=== PATIENT | male | born 1960 | race Caucasian/White ===

== ENCOUNTER 2018-05-13 06:00 | Day surgery (SDC) | payer BC ==
[~2018-05-13] VITALS: Ht 182.9 cm; Wt 122.2 kg
[2018-05-13] MEDS ORDERED: PROPOFOL 200 MG INJ ONE (07:00)
--- NOTE | 2018-05-13 07:21 | PREAC ---
Date/Time of Note Date/Time of Note DATE: 05/13/18 TIME: 07: Anesthesia Eval and Record Evaluation Time Pre-Procedure Interview DATE: 05/13/18 TIME: 07:19 Age 57 Sex male NPO: 8 hrs Preoperative diagnosis HX OF COLON POLYPS Planned procedure COLONOSCOPY Past Medical History Past Medical History: Includes Cardio: HTN, CAD Pulm: Other (LEFT DIAPHRAM PARTIAL PARALYSIS) Neuro: Other (THYMECTOMY) Surgery & Anesthesia Issues No known issue Meds Anticoagulation: No Beta Caroline within 24 hr: Yes Meds reviewed: Yes Allergies Coded Allergies: No Known Allergy (Unverified , 05/13/18) Allergies Reviewed: Yes Labs/Studies Labs Reviewed: Reviewed by anesthesiologist test: N/A Studies: ECG, CXR Pre-procedure Exam Airway: Adequate mouth opening, Adequate thyromental dist Mallampati: Mallampati II Teeth: Normal Lung: Normal Heart: Normal ASA Physical Status ASA physical status: 3 Emergency: None Planned Anesthetic General/MAC: MAC Planned Pain Management Parenteral pain med Pre-operative Attestations Prior to commencing anesthesia and surgery, the patient was re-evaluated, there was verification of: *The patient's identity *The results of appropriate recent lab work and preoperative vital signs *The above evaluation not changing prior to induction *Anesthetic plan, risk benefits, alternative and complications discussed with patient/family; questions answered; patient/family understands, accepts and wishes to proceed. NAYELI HERZOG May 13, 2018 07:21
[2018-05-13] MEDS ORDERED: EFFIENT (07:28)
[2018-05-13] MEDS ORDERED: IMMURAN (07:28)
[2018-05-13] MEDS ORDERED: ELIQUIS (07:28)
[2018-05-13] MEDS ORDERED: MESTINON (07:28)
[2018-05-13] MEDS ORDERED: LISINOPRIL (07:29)
[2018-05-13] MEDS ORDERED: ATORVASTATIN (07:29)
[2018-05-13] MEDS ORDERED: PREDNISONE (07:29)
[2018-05-13] MEDS ORDERED: DIGOXIN (07:29)
[2018-05-13] MEDS ORDERED: hydrALAzine 20 MG INJ IV PRN (07:30)
[2018-05-13] MEDS ORDERED: ALBUTEROL 0.083% (NEB) 2.5 MG/3 ML AMP HHN PRN (07:30)
[2018-05-13] MEDS ORDERED: EPHEDrine SULFATE 50 MG/5 ML SYG IV PRN (07:30)
[2018-05-13] MEDS ORDERED: LABETALOL HCL 20MG INJ IV PRN (07:30)
[2018-05-13] MEDS ORDERED: FENTAnyl 50 MCG/ML VIAL IV PRN ×2 (07:30)
[2018-05-13] MEDS ORDERED: ONDANSETRON 4 MG INJ IV PRN (07:30)
[2018-05-13] MEDS ORDERED: PROPOFOL 60 ML ONE (07:36)
[2018-05-13] MEDS ORDERED: LIDOCAINE 2% (SDV) 5 ML INJ ONE (07:36)
[2018-05-13 07:41] VITALS: BP 113/61; PULSE 63; RESP 18
[2018-05-13 09:10] VITALS: BP 98/62; PULSE 56; RESP 22
--- NOTE | 2018-05-13 10:27 | PAC ---
Date/Time of Note Date/Time of Note DATE: 05/13/18 TIME: 10:27 Post-Anesthesia Notes Post-Anesthesia Note Last documented vital signs Vital Signs Date Temp Pulse Resp B/P (MAP) Pulse Ox O2 O2 Flow FiO2 Time Delivery Rate 05/13/18 98.1 56 22 98/62 (74) 95 Room Air 09:10 Activity: WNL Respiratory function: WNL Cardiovascular function: WNL Mental status: Baseline Pain reasonably controlled: Yes Hydration appropriate: Yes Nausea/Vomiting absent: Yes NAYELI HERZOG May 13, 2018 10:27
== END 2018-05-13 10:41 | disposition home or self-care (01) ==
LOC: GIL 06:00
PROVIDERS: ATTEND Internal Medicine Gastroenterology
DX: D12.0 Benign neoplasm of cecum (principal); K62.1 Rectal polyp; K57.30 Diverticulosis of large intestine without perforation or abscess without bleeding
CPT/HCPCS: 88305

== ENCOUNTER 2018-07-15 05:55 | Day surgery (SDC) | payer BC ==
[~2018-07-15] VITALS: Ht 152.4 cm; Wt 124.0 kg
[~2018-07-15 05:55] MED LIST: ATORVASTATIN; DIGOXIN; EFFIENT; ELIQUIS; IMMURAN; LISINOPRIL; MESTINON; PREDNISONE
[2018-07-15 07:06] VITALS: Ht 152.4 cm; Wt 124.0 kg
[2018-07-15] MEDS ORDERED: PRED5TAB PO (07:27)
[2018-07-15] MEDS ORDERED: PRAS10TA6 PO (07:27)
[2018-07-15] MEDS ORDERED: LISI2.5T59 PO (07:27)
[2018-07-15] MEDS ORDERED: APIX5TAB PO (07:27)
[2018-07-15] MEDS ORDERED: AZAT50TA31 PO (07:27)
[2018-07-15] MEDS ORDERED: ATOR-2 PO (07:27)
[2018-07-15] MEDS ORDERED: [UNRECOGNIZED DRUG - CODE] PO (07:27)
[2018-07-15] MEDS ORDERED: DIGO125T93 PO (07:27)
[2018-07-15] MEDS ORDERED: PROPOFOL 40 ML ONE (07:30)
[2018-07-15] MEDS ORDERED: MIDAZOLAM 1 MG/ML 2 ML INJ ONE (07:30)
[2018-07-15] MEDS ORDERED: LIDOCAINE 2% (SDV) 5 ML INJ ONE (07:30)
[2018-07-15] MEDS ORDERED: KETAMINE (50 MG/ML) 10 ML VIAL ONE (07:31)
[2018-07-15] MEDS ORDERED: GLYCOPYRROLATE 0.4 MG INJ ONE (07:34)
[2018-07-15 07:42] VITALS: BP 117/67; PULSE 60; RESP 18
--- NOTE | 2018-07-15 07:47 | PREAC ---
Date/Time of Note Date/Time of Note DATE: 07/15/18 TIME: 07:44 Anesthesia Eval and Record Evaluation Time Pre-Procedure Interview DATE: 07/15/18 TIME: 07:44 Age 57 Sex male NPO: 8 hrs Preoperative diagnosis polyp hx Planned procedure colonoscopy Past Medical History Past Medical History: Includes (myasthenia gravis, hx thymoma ca, TIA, RI w/ stent placement) Cardio: RI Surgery & Anesthesia Issues No known issue Meds Anticoagulation: Yes (stoppped for 5 days) Beta Caroline within 24 hr: No Reason Beta Caroline not given: Pt. not on B-Caroline Reported Medications Prasugrel Hydrochloride* (Effient*) 10 Mg Tablet, 10 MG PO DAILY, TAB 07/15/18 Apixaban* (Eliquis*) 5 Mg Tablet, 10 MG PO BID, TAB 07/15/18 Digoxin* (Lanoxin*) 0.125 Mg Tablet, 0.125 MG PO DAILY, TAB 07/15/18 Lisinopril* (Lisinopril*) 2.5 Mg Tablet, 2.5 MG PO DAILY, #30 TAB 07/15/18 Atorvastatin* (Atorvastatin*) 80 Mg Tablet, 80 MG PO QHS, #30 TAB 07/15/18 Prednisone* (Prednisone*) 5 Mg Tab, 5 MG PO DAILY, TAB 07/15/18 Azathioprine* (Imuran*) 50 Mg Tab, 50 MG PO DAILY, TAB 07/15/18 Pyridostigmine [place]* (Mestinon*) 180 Mg Tablet.sa, 180 MG PO DAILY, TAB 07/15/18 Discontinued Reported Medications [Prednisone] No Conflict Check 05/13/18 [Digoxin] No Conflict Check 05/13/18 [Atorvastatin] No Conflict Check 05/13/18 [Lisinopril] No Conflict Check 05/13/18 [Eliquis] No Conflict Check 05/13/18 [Effient] No Conflict Check 05/13/18 [Immuran] No Conflict Check 05/13/18 [Mestinon] No Conflict Check 05/13/18 Meds reviewed: Yes Allergies Coded Allergies: No Known Allergy (Unverified , 05/13/18) Allergies Reviewed: Yes Labs/Studies Labs Reviewed: Reviewed by anesthesiologist test: N/A Pre-procedure Exam Airway: Adequate mouth opening, Adequate thyromental dist Mallampati: Mallampati II Teeth: Normal Lung: Normal Heart: Normal ASA Physical Status ASA physical status: 3 Emergency: None Planned Anesthetic General/MAC: MAC Pre-operative Attestations Prior to commencing anesthesia and surgery, the patient was re-evaluated, there was verification of: *The patient's identity *The results of appropriate recent lab work and preoperative vital signs *The above evaluation not changing prior to induction *Anesthetic plan, risk benefits, alternative and complications discussed with patient/family; questions answered; patient/family understands, accepts and wishes to proceed. URSULA VALNETINO Jul 15, 2018 07:47
[2018-07-15] MEDS ORDERED: ALBUTEROL 0.083% (NEB) 2.5 MG/3 ML AMP HHN PRN (08:00)
[2018-07-15] MEDS ORDERED: ACETAMINOPHEN 500 MG TAB PO PRN (08:00)
[2018-07-15] MEDS ORDERED: ONDANSETRON 4 MG INJ IV PRN (08:00)
[2018-07-15] MEDS ORDERED: PROPOFOL 20 ML ONE (08:43)
[2018-07-15 09:15] VITALS: BP 114/66; PULSE 54; RESP 20
--- NOTE | 2018-07-15 09:15 | PAC ---
Date/Time of Note Date/Time of Note DATE: 07/15/18 TIME: 09:13 Post-Anesthesia Notes Post-Anesthesia Note Last documented vital signs @0901 107/61, 100%, 18, 50hr, 98 Activity: WNL Respiratory function: WNL Cardiovascular function: WNL Mental status: Baseline Pain reasonably controlled: Yes Hydration appropriate: Yes Nausea/Vomiting absent: Yes URSULA VALENTINO Jul 15, 2018 09:14
[2018-07-15 09:25] VITALS: BP 112/64; PULSE 54; RESP 20
== END 2018-07-15 12:40 | disposition home or self-care (01) ==
LOC: GIL 05:55
PROVIDERS: ATTEND Internal Medicine Gastroenterology
DX: D12.2 Benign neoplasm of ascending colon (principal); D12.8 Benign neoplasm of rectum; Z86.73 Personal history of transient ischemic attack (TIA), and cerebral infarction without residual deficits; I25.2 Old myocardial infarction
CPT/HCPCS: 45385; 88305; J2250